=== PATIENT | female | born 1995 | race Two or more races ===

== ENCOUNTER 2019-11-11 12:49 | Emergency (ER) | payer MEDICAID, OTHER ==
[~2019-11-11] VITALS: Ht 154.9 cm; Wt 54.4 kg
[2019-11-11 13:01] VITALS: BP 129/72
== END 2019-11-11 15:01 | disposition home or self-care (01) ==
LOC: ER 12:49 → EDUNIT# 12:49 → ER 15:01
DX: R09.81 Nasal congestion (principal); R51 Headache; R53.83 Other fatigue; Z20.828 Contact with and (suspected) exposure to other viral communicable diseases
CPT/HCPCS: 99283; U0003